=== PATIENT | female | born 1945 | race Caucasian/White ===

== ENCOUNTER 2020-10-27 15:44 | Emergency (ER) | payer MEDICARE ==
[2020-10-27] MEDS ORDERED: ONDANSETRON 4 MG/2 ML VIAL IVP STA (16:08)
[2020-10-27] MEDS ORDERED: MORPHINE SULFATE 4 MG/ML SYRINGE IVP STA (16:08)
[2020-10-27] MEDS ORDERED: TOPICAL SKIN ADHESIVE 1 EACH AMP TOPICAL ONE (16:08)
[2020-10-27] MEDS ORDERED: DIPH,PERTUS(ACELL)TETVAC-LF 0.5 ML VIAL IM ONE (16:08)
--- NOTE | 2020-10-27 16:31 | ED ---
Fall HPI - General Chief Complaint: Fall Stated Complaint: Fall/arm injury Time Seen by Provider: 10/27/20 15:50 Source: patient Mode of arrival: EMS - History of Present Illness Initial Comments: Nga is a very pleasant 75-year-old female who presents to the emergency department today via ambulance after a fall. Patient was attempting to walk up steps when she misstepped falling onto her left side. She has pain in her left shoulder and upper arm. She also struck her left forehead resulting in a laceration. She is not on any antiplatelet or anticoagulant medications. - Related Data Home Medications Medication Instructions Recorded Confirmed L.acidoph,Paracasei, B.lactis 1 cap PO DAILY 10/27/20 10/27/20 [Probiotic] Levothyroxine Sodium [Synthroid] 125 mcg PO DAILY 10/27/20 10/27/20 medroxyPROGESTERone [Provera] 5 mg PO DAILY 10/27/20 10/27/20 Allergies Allergy/AdvReac Type Severity Reaction Status Date / Time chocolate flavor AdvReac Rash/Hives Verified 10/27/20 16:42 nickel AdvReac Rash/Hives Verified 10/27/20 16:42 Penicillins AdvReac Rash/Hives Verified 10/27/20 16:42 Review of Systems ROS Statement: Those systems with pertinent positive or pertinent negative responses have been documented in the HPI. ROS Other: All systems not noted in ROS Statement are negative. Past Medical History Past Medical History: Osteoarthritis (OA) History of Any Multi-Drug Resistant Organisms: None Reported Past Surgical History: Joint Replacement, Orthopedic Surgery Additional Past Surgical History / Comment(s): Pt states she has had both knees replaced in . Plate and screwed placed in right wrist in 1998. Past Psychological History: No Psychological Hx Reported Smoking Status: Former smoker Past Alcohol Use History: Occasional Past Drug Use History: None Reported General Exam - General Exam Comments Initial Comments: Physical Exam GENERAL: Appears uncomfortable HENT: 1cm Laceration over left eyebrow EYES: PERRL, EOMI PULMONARY: Unlabored respirations. CARDIOVASCULAR: RRR Warm and well perfused extremities ABDOMEN: Non-distended SKIN: Forehead laceration : Deferred NEUROLOGIC: Alert and oriented Normal speech MUSCULOSKELETAL: Decreased ROM of left shoulder due to pain PSYCHIATRIC: No SI/HI Limitations: physical limitation Course Vital Signs 10/27/20 15:52 Temperature 97.6 F Pulse Rate 74 Respiratory 18 Rate Blood Pressure 186/85 O2 Sat by Pulse 96 Oximetry Procedures - Laceration Laceration #1 Consent Obtained: verbal consent Indication: laceration Site: face Description: linear Depth: simple, single layer Pre-repair: wound explored, deep structures intact Type of Sutures: other (skin glue) Patient Tolerated Procedure: well, no complications Medical Decision Making - Medical Decision Making The patient was seen and evaluated history was obtained from the patient X-ray and CT imaging was obtained, CT was negative, x-ray did reveal multiple fractures possible fracture of the coracoid, possibly humerus fracture, midshaft spiral humerus fracture, these fractures were discussed with the orthopedic on- call Dr. Montana who recommended sling and pain management. He will see in office and likely place a hanging arm sling. Patient was discharged home in stable condition. Disposition Clinical Impression: Fall, Closed left humeral fracture Disposition: HOME SELF-CARE Condition: Stable Instructions (If sedation given, give patient instructions): Proximal Humerus Fracture (ED) Is patient prescribed a controlled substance at d/c from ED?: No Referrals: Santy Israel DO [Primary Care Provider] - 1-2 days Sherrell Montana DO [Doctor of Osteopathic Medicine] - 1-2 days
--- NOTE | 2020-10-27 17:46 | CT ---
EXAMINATION TYPE: CT brain aline wo con DATE OF EXAM: 10/27/2020 COMPARISON: None available. HISTORY: fall CT DLP: 1458.8 mGycm Automated exposure control for dose reduction was used. TECHNIQUE: CT scan of the head and cervical spine are performed without contrast. FINDINGS: There is no acute intracranial hemorrhage, mass effect, or midline shift identified. The ventricles and sulci are within normal limits in size. There is moderate white matter disease and mi ld parenchymal volume loss. The globes are intact and the visualized sinuses are clear. Cervical spine is visualized in its entirety from C1 through upper thoracic levels and demonstrates s atisfactory alignment without evidence of acute fracture or dislocation. There is moderate cervical s pondylosis. Prevertebral soft tissue appears within normal limits. The C1-C2 articulation is unremar kable. IMPRESSION: 1. There is no acute fracture or dislocation evident in the cervical spine. 2. No acute intracranial hemorrhage, mass effect, or midline shift is seen.
--- NOTE | 2020-10-27 17:59 | XR ---
RESULT: HISTORY: fall TECHNIQUE: 3 views of the left shoulder. 2 views of the left humerus. COMPARISON: None. FINDINGS: There is mildly displaced spiral fracture of the humeral mid shaft. There is also subtle nondisplaced fracture of the humeral head. There is questionable fracture of the coracoid process. No evidence of dislocation. There is moderate osteoarthritis of the acromioclavicular joint. IMPRESSION: Acute left humeral fracture involving the shaft and head. Questionable fracture of the coracoid process.
[2020-10-27] MEDS ORDERED: HYDROmorphone 0.5 MG/0.5 ML SYRINGE IVP STA (19:04)
[2020-10-27 19:44] VITALS: BP 117/62; PULSE 88; RESP 14; TEMP 98
== END 2020-10-27 19:35 | disposition home or self-care (01) ==
LOC: EC 15:44
DX: S42.342A Displaced spiral fracture of shaft of humerus, left arm, initial encounter for closed fracture (principal); S01.81XA Laceration without foreign body of other part of head, initial encounter; Z87.891 Personal history of nicotine dependence; Z88.0 Allergy status to penicillin; Z91.018 Allergy to other foods; Z23 Encounter for immunization; Z91.048 Other nonmedicinal substance allergy status; W10.9XXA Fall (on) (from) unspecified stairs and steps, initial encounter; Y93.01 Activity, walking, marching and hiking; Y92.89 Other specified places as the place of occurrence of the external cause
CPT/HCPCS: 73030; 73060; 72125; 70450; 90715; 99284; 12011; 96374; 96375; 90471; J2270; J2405; J1170